=== PATIENT | female | born 1995 | race Caucasian/White ===

== ENCOUNTER 2016-08-28 14:23 | Emergency (ER) | payer OTHER ==
[~2016-08-28] VITALS: Ht 152.4 cm; Wt 118.0 kg
[2016-08-28 16:24] VITALS: BP 168/93
== END 2016-08-28 16:24 | disposition home or self-care (01) ==
LOC: EME 14:23
DX: S93.401A Sprain of unspecified ligament of right ankle, initial encounter (principal); X50.9XXA Other and unspecified overexertion or strenuous movements or postures, initial encounter; W18.41XA Slipping, tripping and stumbling without falling due to stepping on object, initial encounter
CPT/HCPCS: 73610; 99281; 99284